=== PATIENT | female | born 1965 | race Caucasian/White ===

== ENCOUNTER → 2021-08-08 11:19 | Outpatient (BNVA) | payer OTHER, SELFPAY | PROVIDERS: Family Provider Family Medicine; PCP Nurse Practitioner Family; Visit Provider Internal Medicine | DX: M79.7 Fibromyalgia (principal); M25.50 Pain in unspecified joint; R53.83 Other fatigue; Z11.59 Encounter for screening for other viral diseases; R25.1 Tremor, unspecified | CPT/HCPCS: 99204 ==

== ENCOUNTER 2021-08-08 12:43 | Outpatient (CLI) | payer OTHER, SELFPAY ==
--- NOTE | 2021-08-08 12:54 | XR_ITS ---
WS: [id number] Sacroiliac joints, 3 views, 08/08/2021 Clinical Data: L40.9 - Psoriasis, unspecified Comparison: None. Findings: The SI joints are normal in width. No erosion, sclerosis or destruction is seen. There are no fractur es or dislocations. The adjacent visualized pelvis and hips are unremarkable. XR/XR sacroiliac jts m 3V [id number] Impression: Negative SI joints.
--- NOTE | 2021-08-08 12:54 | XR_ITS ---
WS: [id number] Right hand, 2 views, 08/08/2021 Clinical Data: M25.50 - Pain in unspecified joint Comparison: None. Findings: No fractures or dislocations are seen. The soft tissues are unremarkable. The joint space s are normal No periarticular demineralization or calcifications are seen. XR/XR hand RT 2V [id number] Impression: Negative right hand.
--- NOTE | 2021-08-08 12:54 | XR_ITS ---
WS: [id number] Left hand, 2 views, 08/08/2021 Clinical Data: M25.50 - Pain in unspecified joint Comparison: None. Findings: No fractures or dislocations are seen. The soft tissues are unremarkable. The joint spaces are normal No periarticular demineralization or calcifications are seen. XR/XR hand LT 2V [id number] Impression: Negative left hand.
[2021-08-08 13:42] LABS: Basophils % 0.4 %; Eosinophils # 0.2 10^3/uL (0.0-0.8); Eosinophils % 3.3 %; Hematocrit 41.6 % (37.0-47.0); Hemoglobin 13.9 g/dL (11.5-15.3); Lymphocytes # 1.3 10^3/uL (0.8-4.8); Lymphocytes % 26.9 %; Mean Corpuscular HGB Conc 33.4 g/dL (30.0-36.0); Mean Corpuscular Hemoglobin 28.4 pg (28.0-34.0); Mean Corpuscular Volume 84.9 fl (81-99); Mean Platelet Volume 9.7 fL (7.4-10.4); Monocytes # 0.3 10^3/uL (0.2-0.9); Monocytes % 5.5 %; Neutrophils % 63.7 %; Nucleated Red Blood Cells % 0 %; Platelet Count 215 10^3/cmm (130-400); Red Cell Distribution Width 11.6 % (12.1-15.1); White Blood Count 4.9 10^3/uL (4.0-10.0)
[2021-08-08 14:28] LABS: Alanine Aminotransferase 14 U/L (0-33); Albumin Level 4.3 g/dL (3.5-5.2); Alkaline Phosphatase 97 IU/L (35-105); Aspartate Amino Transferase 17 U/L (0-32); Blood Urea Nitrogen 14 mg/dL (6-20); C Reactive Protein 0.8 mg/L (0.0-4.9); Calcium 9.4 mg/dL (8.5-10.5); Carbon Dioxide 24 mmol/L (22-29); Chloride 101 mmol/L (98-107); Creatine Phosphokinase 90 U/L (26-192); Globulin 2.7 g/dL (1.3-4.6); Glomerular Filtration Rate 86.9 mL/min (90-130); Glucose 89 mg/dL (65-115); Magnesium 1.8 mg/dL (1.7-2.3); Osmolality Calculated 288 mOsm/kg (285-295); Phosphorus 3.2 mg/dL (2.5-4.5); Sodium 139 mmol/L (136-145); Thyroid Stimulating Hormone 1.01 uIU/mL (0.27-4.20); Total Bilirubin 0.3 mg/dL (0.15-1.2)
[2021-08-08 14:33] LABS: Cortisol Random 6.18 ug/dL (2.47-19.5); Hepatitis B Core AB, Total Non-Reactive (Nonreactive); Hepatitis B Surface Antigen Non-Reactive (Nonreactive); Hepatitis C Virus Antibody Non-Reactive (Nonreactive)
[2021-08-08 14:48] LABS: Ferritin 217 ng/mL (15-150); Iron 100 ug/dL (37-145)
[2021-08-08 15:03] LABS: 25 Hydroxy Vitamin D 48 ng/mL (30-100); Vitamin B12 523 pg/mL (232-1245)
[2021-08-09 15:03] LABS: Cyclic Citrullinated Peptide <16 UNITS
[2021-08-09 15:23] LABS: COMPLEMENT COMPONENT C3C 135 mg/dL (83-193); COMPLEMENT COMPONENT C4C 27 mg/dL (15-57)
[2021-08-09 16:27] LABS: COMPLEMENT, TOTAL (CH50) >60 U/mL (31-60)
[2021-08-09 17:04] LABS: Erythrocyte Sedimentation Rate 9 mm/hr (0-15)
[2021-08-10 16:18] LABS: THYROID PEROXIDASE ANTIBODIES 1 IU/mL (<9)
[2021-08-10 16:32] LABS: ANA SCREEN, IFA NEGATIVE (NEGATIVE)
[2021-08-10 17:58] LABS: CENTROMERE B ANTIBODY <1.0 NEG AI (<1.0 NEG); JO-1 ANTIBODY <1.0 NEG AI (<1.0 NEG); RNP ANTIBODY <1.0 NEG AI (<1.0 NEG); SCL-70 ANTIBODY <1.0 NEG AI (<1.0 NEG); SJOGREN'S ANTIBODY (SS-A) <1.0 NEG AI (<1.0 NEG); SM ANTIBODY <1.0 NEG AI (<1.0 NEG); SS-B <1.0 NEG AI (<1.0 NEG)
[2021-08-11 13:44] LABS: Immunoglobulin A 182 mg/dL (47-310)
[2021-08-12 12:17] LABS: Tissue Transglutaminase IgA Ab <1.0 U/mL; Tissue transglutaminase Ab.IgG <1.0 U/mL
[2021-08-12 12:38] LABS: Gliadin Ab.IgA 1.1 U/mL; Gliadin Ab.IgG <1.0 U/mL
== END 2021-08-08 12:44 | disposition home or self-care (01) ==
LOC: LAB 12:53
PROVIDERS: PCP Nurse Practitioner Family; Visit Provider Internal Medicine
DX: M25.50 Pain in unspecified joint (principal); L40.9 Psoriasis, unspecified
CPT/HCPCS: 72202; 73120; 80053; 82306; 82533; 82550; 82607; 82728; 82784; 83516; 83540; 83735; 84100; 84439; 84443; 85025; 85651; 86140; 86160; 86162; 86200; 86235; 86255; 86376; 86431; 86704; 86803; 87340

== ENCOUNTER → 2023-01-08 12:24 | Outpatient (BNVA) | payer OTHER, SELFPAY | PROVIDERS: PCP Nurse Practitioner; Visit Provider Internal Medicine | DX: R76.8 Other specified abnormal immunological findings in serum (principal) | CPT/HCPCS: 36415; 73120; 80053; 85025; 85651; 86140 ==